=== PATIENT | male | born 1970 | race Caucasian/White ===

== ENCOUNTER 2023-08-16 08:33 | Outpatient (CLI) | payer OTHER ==
[2023-08-16] MEDS ORDERED: Gadobenate 529 MG/ML (10ML SDV) FS SCH (09:30)
[2023-08-16] MEDS ORDERED: Iopamidol 300 61% 100 ML VIAL FS SCH (09:30)
[2023-08-16] MEDS ORDERED: EPINEPHrine 1 MG/ML AMP FS SCH (09:30)
[2023-08-16] MEDS ORDERED: Lidocaine 1% PF 5 ML VIAL FS SCH (09:30)
[2023-08-16] MEDS ORDERED: Lidocaine 1% PF 5 ML VIAL ONE (09:45)
[2023-08-16] MEDS ORDERED: Gadobenate 529 MG/1 ML (20ML SDV) ONE (09:45)
[2023-08-16] MEDS ORDERED: Iopamidol 300 61% 100 ML VIAL FS ONE (09:45)
[2023-08-16] MEDS ORDERED: EPINEPHrine 1 MG/ML AMP ONE (09:45)
== END 2023-08-16 08:34 | disposition home or self-care (01) ==
LOC: RAD 08:33
PROVIDERS: ATTEND Orthopaedic Surgery
DX: M24.812 Other specific joint derangements of left shoulder, not elsewhere classified (principal); M75.122 Complete rotator cuff tear or rupture of left shoulder, not specified as traumatic; S46.812A Strain of other muscles, fascia and tendons at shoulder and upper arm level, left arm, initial encounter
CPT/HCPCS: 23350; A9577; J0171; J7050; Q9967

== ENCOUNTER 2023-10-08 08:55 | Outpatient (CLI) | payer OTHER ==
[2023-10-08 10:46] LABS: #Basophils 0.1 10x3/uL (0.0-0.2); #Eosinphils 0.2 10x3/uL (0.0-0.5); #Monocytes 0.8 10x3/uL (0.0-1.1); #Neutrophils 2.3 10x3/uL (1.5-8.4); %Basophils 1.1 % (0.0-2.0); %Lymphocytes 38.8 % (18.0-47.0); %Monocytes 14.8 % (0.0-10.0); %Neutrophils 41.9 % (40.0-75.0); Hematocrit 48.3 % (38.8-50.0); Hemoglobin 16.4 g/dL (13.5-17.5); Mean Corpuscular Hemoglobin 30.5 pg (27.0-33.0); Mean Corpuscular Volume 89.9 fl (81.2-95.1); Mean Platelet Volume 10.1 fl (7.4-10.4); Platelet Count 170 10x3/uL (150-450); RBC Distribution Width 13.2 % (11.5-14.5); Red Blood Cell (RBC) Count 5.37 10x6/uL (4.32-5.72); White Blood Cell (WBC) Count 5.4 10x3/uL (3.5-10.5)
[2023-10-08 11:26] LABS: Anion Gap 13 mmol/L (10-20); BUN (Urea Nitrogen) 25 mg/dL (8.4-25.7); Calc. Creatinine Clearance 0 mL/min (70-130); Calcium 9.3 mg/dL (7.8-10.44); Carbon Dioxide 26 mmol/L (22-29); Chloride 105 mmol/L (98-107); Estimated GFR 71; Glucose 86 mg/dL (70-105); Potassium 4.4 mmol/L (3.5-5.1); Sodium 140 mmol/L (136-145)
== END 2023-10-08 08:56 | disposition home or self-care (01) ==
LOC: LABBT 08:55
PROVIDERS: ATTEND Orthopaedic Surgery
DX: Z01.818 Encounter for other preprocedural examination (principal); M75.102 Unspecified rotator cuff tear or rupture of left shoulder, not specified as traumatic
CPT/HCPCS: 80048; 85025; 93005; 93010

== ENCOUNTER 2023-10-10 07:45 | Day surgery (SDC) | payer OTHER ==
[2023-10-08 09:27] VITALS: BMI 32.3
[2023-10-10] MEDS ORDERED: Midazolam HCl 2 mg/2 ml Vial ONE (08:15)
[2023-10-10] MEDS ORDERED: fentaNYL 50 mcg/mL 1 mL Vial ONE (08:15)
[2023-10-10] MEDS ORDERED: Ropivacaine 0.5% HCl/PF (150 MG/30 ML VIAL) ONE (08:15)
[2023-10-10] MEDS ORDERED: Ropivacaine 0.2% HCl/PF 20 ML ONE (08:15)
[2023-10-10] MEDS ORDERED: Vancomycin (BATCH) 1.5 GM/300 ML BAG ONE (08:23)
[2023-10-10] MEDS ORDERED: Acetaminophen 500 MG TAB ONE (08:54)
[2023-10-10] MEDS ORDERED: Famotidine/PF 20 mg/2ml Vial ONE (08:58)
[2023-10-10] MEDS ORDERED: traMADol HCl 50 MG TAB PO PRN ×2 (09:45)
[2023-10-10] MEDS ORDERED: Ropivacaine 0.2% 550 ML 550 ML NERVE BLCK SCH (09:45)
[2023-10-10] MEDS ORDERED: Ondansetron PF 4 MG/2 ML Vial IVP PRN (09:45)
[2023-10-10] MEDS ORDERED: Promethazine HCl 25 MG/ML VIAL IM PRN (09:45)
[2023-10-10] MEDS ORDERED: Zolpidem Tartrate 5 MG TAB PO PRN (09:45)
[2023-10-10] MEDS ORDERED: HYDROcodone/Acetaminophen 10/325 mg Tablet PO PRN ×2 (09:45)
[2023-10-10] MEDS ORDERED: Dexamethasone 20 MG/5 ML VIAL ONE ×2 (10:00→10:26)
[2023-10-10] MEDS ORDERED: Lidocaine 1% PF 5 ML VIAL ONE ×2 (10:00→10:26)
[2023-10-10] MEDS ORDERED: Ondansetron PF 4 MG/2 ML Vial ONE ×2 (10:00→10:26)
[2023-10-10] MEDS ORDERED: PROPOFOL 20 ML ONE (10:00)
[2023-10-10] MEDS ORDERED: Rocuronium Bromide 10 MG/ML (10ML VIAL) ONE ×2 (10:00→10:26)
[2023-10-10] MEDS ORDERED: fentaNYL PF 100 MCG/2 ML SYRINGE ONE (10:00)
[2023-10-10] MEDS ORDERED: CEFAZOLIN 2 GM VIAL ONE (10:11)
[2023-10-10] MEDS ORDERED: Sodium Chloride 0.9% 100 ML ONE (10:12)
[2023-10-10] MEDS ORDERED: PHENYLEPHRINE-NS 100 MCG/ML 10 ML SYRINGE ONE ×3 (10:26→11:11)
[2023-10-10] MEDS ORDERED: ePHEDrine Sulfate 50 MG/10 ML VIAL ONE ×2 (10:26→10:46)
[2023-10-10] MEDS ORDERED: PROPOFOL 200 MG/20 ML VIAL ONE (10:26)
[2023-10-10] MEDS ORDERED: SUGAMMADEX SODIUM 200 MG/2 ML VIAL ONE (12:00)
== END 2023-10-10 15:10 | disposition home or self-care (01) ==
LOC: SDC 07:45
PROVIDERS: ATTEND Orthopaedic Surgery
PROC: 0RNK0ZZ Release Left Shoulder Joint, Open Approach (ICD-10-PCS; principal; 2023-10-10)
PROC: 0LM20ZZ Reattachment of Left Shoulder Tendon, Open Approach (ICD-10-PCS; principal; 2023-10-10)
PROC: 0LS40ZZ Reposition Left Upper Arm Tendon, Open Approach (ICD-10-PCS; principal; 2023-10-10)
DX: M75.42 Impingement syndrome of left shoulder (principal); M75.122 Complete rotator cuff tear or rupture of left shoulder, not specified as traumatic; R74.02 Elevation of levels of lactic acid dehydrogenase [LDH]; I10 Essential (primary) hypertension; Z90.49 Acquired absence of other specified parts of digestive tract; Z98.890 Other specified postprocedural states; Z79.899 Other long term (current) drug therapy; M17.11 Unilateral primary osteoarthritis, right knee; M17.12 Unilateral primary osteoarthritis, left knee
CPT/HCPCS: A4306; C1713; J1100; J2250; J2405; J2704; J2795; J3010; J3370; J3490; S0028

== ENCOUNTER 2024-02-05 13:43 | Outpatient (CLI) | payer OTHER | END 2024-02-05 13:44 | disposition home or self-care (01) | LOC: BICCT 13:43 | PROVIDERS: ATTEND Family Medicine | DX: E78.5 Hyperlipidemia, unspecified (principal) | CPT/HCPCS: 75571 ==